=== PATIENT | male | born 1975 | race Two or more races ===

== ENCOUNTER 2020-11-24 07:15 | Outpatient (CLI) | payer OTHER | END 2020-11-24 07:36 | disposition home or self-care (01) | LOC: SONOGRAMA 07:15 → MAMO-SONO 07:15 → SONOGRAMA 07:36 | PROVIDERS: ATTEND Surgery | DX: K76.0 Fatty (change of) liver, not elsewhere classified (principal); R10.11 Right upper quadrant pain ==